=== PATIENT | female | born 1995 | race Caucasian/White ===

== ENCOUNTER 2020-04-02 12:45 | Emergency (ER) | payer OTHER ==
[~2020-04-02] VITALS: Ht 144.8 cm; Wt 63.5 kg
[2020-04-02 12:57] VITALS: BP 106/41
--- NOTE | 2020-04-02 14:28 | NUR ---
AMBULATED TO BED 1
--- NOTE | 2020-04-02 14:36 | NUR ---
24 y/o female from home c/o LUQ pain x 3 days. Denies N/V/D. States abdominal bloating. Non tender to the touch. VSS
[2020-04-02] MEDS ORDERED: LIDOCAINE VISCOUS 2% 20 ML UDC ONE (14:54)
[2020-04-02] MEDS ORDERED: ALUMINUM HYD/MAG/SIMETHICONE 30 ML UDC ONE (14:54)
[2020-04-02] MEDS ORDERED: DICYCLOMINE HCL LIQUID 10 MG/5 ML UDC ONE (14:54)
[2020-04-02] MEDS: DICYCLOMINE HCL LIQUID 20 MG, ALUMINUM HYD/MAG/SIMETHICONE 30 ML, LIDOCAINE VISCOUS 2% ... PO ONE ×3 (15:02)
--- NOTE | 2020-04-02 15:10 | NUR ---
PT IN POSITION OF COMFORT. PT STATES POSITIVE RELIEF 5/10 PAIN AFTER GI COCKTAIL. BED LOCKED AT LOWEST POSITION, SIDE RAILS X1 WITH CALL LIGHT WITHIN REACH. ALL PT NEEDS ARE BEING MET AT THIS TIME.
[2020-04-02 15:25] VITALS: BP 100/66
--- NOTE | 2020-04-02 15:25 | NUR ---
Patient discharged with v/s stable. Written and verbal after care instructions given and explained. Patient alert, oriented and verbalized understanding of instructions. Ambulatory with steady gait. All questions addressed prior to discharge. ID band removed. Patient advised to follow up with PMD. Rx of Motrin, Prilosec given. Patient educated on indication of medication including possible reaction and side effects. Opportunity to ask questions provided and answered.
== END 2020-04-02 15:25 | disposition home or self-care (01) ==
LOC: MED 12:45
DX: R10.32 Left lower quadrant pain (principal)
CPT/HCPCS: 81002; 81025; 99283